=== PATIENT | male | born 1950 | race Caucasian/White ===

== ENCOUNTER → 2017-07-16 | Day surgery (SDC) | payer OTHER ==
[~2017-07-16] MED LIST: BUPIVACAINE/EPINEPHRINE 0.25% 50 ML VIAL ONE; KETOROLAC TROMETHAMINE 30 MG/ML (IVP) VIAL IV PUSH ONE; LACTATED RINGER'S 1000 ML INJ 1,000 ML ONE; MEPERIDINE HCL 25 MG/ML VIAL ONE; MIDAZOLAM HCL 2 MG/2 ML VIAL ONE; ONDANSETRON HCL 4 MG/2 ML VIAL IV PUSH ONE; PROPOFOL 200 MG/20 ML AMP IV ONE; ceFAZolin INJ 1,000 MG VIAL ONE
--- NOTE | 2017-07-17 06:43 | MP ---
cc: MARIBEL ISSA M.D. DATE OF SURGERY 07/16/2017 PREOPERATIVE DIAGNOSIS Left knee severe osteoarthritis with healed tibial plateau fracture and retained plate and screws about the proximal tibia. PROCEDURE Left knee exploration and removal of complex hardware plate and screws about left knee and left tibia. ANESTHETIC General. SURGEON Maribel Issa MD ADHESIVE BANDAGE MAKING OPERATOR SURGEON ABDIRAHMAN Reece ESTIMATED BLOOD LOSS 50 cc. SPECIMEN Plate and screws discarded. COMPLICATIONS None known. INDICATION Sony Valencia is a 67-year-old male who had prior tibial plateau fracture and has significant amount of arthritis in his knee. He is headed in the direction of total knee replacement. He has retained plate and screws which would be in the way of knee replacement. He is now indicated for knee exploration and removal of complex instrumentation. The risks, benefits and the alternatives to treatment were thoroughly discussed and all his questions were answered. No guarantees were offered. A detailed informed consent was obtained. The nurse first aid, Abiodun Velez, is an advanced registered nurse practitioner and his skill set was medically necessary for the performance of the operation. PROCEDURE The patient was brought to the operating room, was placed under general anesthetic. The left lower extremity was prepped and draped in the usual sterile fashion. IV antibiotics were given. Time-out was completed. Marcaine with epinephrine was injected about the planned surgical site. Fluoroscopy was used. Time-out had been completed. We then made our proximal-based incision with excellent hemostasis, proceeded in layers to expose the plate, proximally removed five proximal screws, used an elevator along the course of the lateral border of the plate, down the course and then made incisions corresponding to the screws that were distal and we were able to remove two screws like this and then the most inferior screw appeared to have bone overgrowth and it therefore required more exposure and we did find bone overgrowth and we were able to use an osteotome to remove the overgrowth bone and gain access to the screw and then remove the screw. Then used elevator between the plate and bone all the way down and then we were able to remove the plate. Final fluoroscopic x-ray shows the final result, no evidence of fracture. We proceeded to irrigated out with copious amounts of irrigation, proceeded to close with absorbable sutures. Steri-Strips on the skin. Sterile dressing applied. The patient was awoken and returned to the recovery room in stable condition. MD KAMILLA Bruce/CHINYERE /10:49 AM /6:29 AM
== END | disposition home or self-care (01) ==
LOC: ESDC 08:26
PROVIDERS: ATTEND Orthopaedic Surgery Sports Medicine
DX: Z47.2 Encounter for removal of internal fixation device (principal); M17.12 Unilateral primary osteoarthritis, left knee
CPT/HCPCS: 01400; 20680; 73560; 76000; J0690; J1885; J2175; J2250; J2405; J3010; J7120

== ENCOUNTER 2017-11-17 07:04 | Day surgery (SDC) | payer OTHER ==
[2017-11-17] VITALS (9 sets, daily range): BP systolic 104–138; BP diastolic 58–78; PULSE 82–107; RESP 16–20; TEMP 98.1–98.7; O2SAT 94–96
[~2017-11-17] VITALS: Ht 176.5 cm; Wt 86.4 kg
[2017-11-17] MEDS ORDERED: TRAM50TA PO (07:19)
[2017-11-17 07:51] LABS: AUTOMATED NEUTROPHIL # 9.4 TH/MM3 (1.8-7.7); BASOPHIL # 0.1 TH/MM3 (0-0.2); BASOPHIL % 0.8 % (0.0-2.0); EOSINOPHIL % 0.4 % (0.0-4.0); HEMATOCRIT 34.6 % (39.0-51.0); HEMO FLAGS DIFF FINAL; LYMPH % 7.7 % (9.0-44.0); LYMPHOCYTE # 0.9 TH/MM3 (1.0-4.8); MEAN CELL VOLUME 87.6 FL (80.0-100.0); MEAN CORPUSCULAR HEMOGLOBIN 29.8 PG (27.0-34.0); MONO % 8.3 % (0.0-8.0); NEUT % 82.8 % (16.0-70.0); PLATELET COUNT 374 TH/MM3 (150-450); RED BLOOD COUNT 3.95 MIL/MM3 (4.50-5.90); RED CELL DISTRIBUTION WIDTH 18.7 % (11.6-17.2); WHITE BLOOD COUNT 11.4 TH/MM3 (4.0-11.0)
[2017-11-17] MEDS ORDERED: LIDOCAINE HCL 1% 20 ML VIAL ONE (07:59)
[2017-11-17 08:01] LABS: APTT (PATIENT) 23.2 SEC (24.3-30.1); INTERNATIONAL NORMALIZED RATIO 1.2 RATIO; PROTHROMBIN TIME - PATIENT 12.5 SEC (9.8-11.6)
[2017-11-17] MEDS ORDERED: MIDAZOLAM HCL 2 MG/2 ML VIAL ONE (08:19)
[2017-11-17] MEDS ORDERED: SODIUM CHLOR 0.9% 1000 ML IV SCH (08:45)
--- NOTE | 2017-11-17 09:49 | RADRPT ---
EXAM DATE/TIME: 11/17/2017 08:40 [facility] COMPARISON: No previous studies available for comparison. INDICATIONS : Liver mass SEDATION TIME: 15 minutes BIOPSY SITE: liver MEDICATION(S): 1.) 3 mg midazolam (Versed) IV 2.) 150 mcg fentanyl (Sublimaze) IV DEVICE(S): 1.) 16 gauge Busch blunt needle 2.) 18 gauge Biopsy gun MEDICAL HISTORY : None. SURGICAL HISTORY : None. ENCOUNTER: Initial ACUITY: 1 day PAIN SCORE: 0/10 LOCATION: Right upper quadrant A total of four core specimen(s) were obtained and sent to the laboratory for pathologic evaluation. PROCEDURE: 1. CT guided liver biopsy. 2. Conscious sedation with continuous EKG and oximetry monitoring. 3. EKG and oximetry remained stable throughout the procedure. Prior to the procedure informed consent was obtained. Any appropriate prior imaging studies were rev iewed. Using automated exposure control and adjustment of the mA and/or kV according to patient size, radiat ion dose was kept as low as reasonably achievable to obtain optimal diagnostic quality images. DICOM format image data is available electronically for review and comparison. The site was prepped in a sterile fashion. Full sterile technique was used, including cap, mask, michelet rile gloves and gown and a large sterile sheet. Hand hygiene and 2% chlorhexidine and/or betadine/al cohol prep was utilized per protocol for cutaneous antisepsis. The skin and subcutaneous tissues wer e infiltrated with local anesthetic solution. With CT guidance the previously identified target was localized. Biopsy was performed using the presc ribed needle as above. Adequate hemostasis was obtained with compression at the puncture site. Follow-up CT scan reveals no hemorrhage. The patient tolerated the procedure well and there were no complications. The patient was returned to the Radiology Outpatient Unit in stable condition. CONCLUSION: Uncomplicated CT guided biopsy. Angel Avalos MD on November 17, 2017 at 9:45 Board Certified Radiologist. This report was verified electronically.
[2017-11-17] MEDS ORDERED: HYDROmorphone HCL 2 MG TAB PO PRN (11:15)
--- NOTE | 2017-11-17 11:17 | PD.RAD ---
Post CT Procedure Prog Note Pre Procedure Diagnosis: (1) Liver mass Post Procedure Diagnosis: (1) Liver mass Procedure Date: Nov 17, 2017 Supervising Radiologist: Angel Avalos Anesthesia: Conscious Sedation Plan of Activity Patient to Unit: [facility] Patient Condition: Good See PACS Report for procedural detail/treatment Angel Avalos MD Nov 17, 2017 11:17
[2017-11-17] MEDS ORDERED: PILL SPLITTER OTHER PRN (11:45)
== END 2017-11-17 13:30 | disposition home or self-care (01) ==
LOC: HRAD 07:04 → HRIP 07:05 → HRAD 13:30
DX: C79.01 Secondary malignant neoplasm of right kidney and renal pelvis (principal)
CPT/HCPCS: 47000; 77012; 85025; 85610; 85730; 88307; 88333; 88341; 88342; J2250; J3010